=== PATIENT | female | born 1970 | race Two or more races ===

== ENCOUNTER 2020-05-01 17:21 | Emergency (ER) | payer MEDICAID, OTHER ==
[~2020-05-01] VITALS: Ht 157.5 cm; Wt 78.0 kg
[2020-05-01 18:10] VITALS: BP 131/77
== END 2020-05-01 22:15 | disposition home or self-care (01) ==
LOC: ER 17:21
DX: U07.1 COVID-19 (principal); J20.8 Acute bronchitis due to other specified organisms; E11.9 Type 2 diabetes mellitus without complications
CPT/HCPCS: 36415; 87426

== ENCOUNTER 2025-02-09 10:16 | Outpatient (CLI) | payer MEDICAID ==
[2025-02-09 10:50] LABS: Hematocrit 38.4 % (36.0-46.0); Hemoglobin 13.5 g/dL (12.2-16.2); Mean Corpuscular Hemoglobin 30.8 pg (28.0-32.0); Mean Corpuscular Volume 87.5 fL (80.0-100.0); Nucleated Red Blood Cells % 0.0 %
[2025-02-09 11:09] LABS: Alanine Aminotransferase 17 U/L (7-40); Albumin 4.4 g/dL (3.2-4.8); Alkaline Phosphatase 65 U/L (46-116); Anion Gap 9 (5-15); BUN/Creatinine Ratio 13.0 (10.0-20.0); Blood Urea Nitrogen 10 mg/dL (9-23); Calcium 9.2 mg/dL (8.7-10.4); Carbon Dioxide 27 mmol/L (20-31); Chloride 105 mmol/L (98-107); Potassium 4.0 mmol/L (3.5-5.1); Sodium 141 mmol/L (136-145); Total Protein 7.3 g/dL (5.7-8.2)
[2025-02-09 11:10] LABS: Bilirubin, Total 0.5 mg/dL (0.2-1.0)
[2025-02-09 11:11] LABS: Glucose 111 mg/dL (74-106)
[2025-02-09 11:20] LABS: Beta HCG, Quantitative 1.7 mIU/mL (1.5-4.2)
[2025-02-09 11:22] LABS: Thyroid Stimulating Hormone 1.17 uIU/mL (0.55-4.78)
[2025-02-09 13:23] LABS: Follicle Stimulating Hormone 64.19 IU/L (SEE BELOW); Free T4 (Free Thyroxine) 1.36 ng/dL (0.89-1.76)
== END 2025-02-09 17:00 | disposition home or self-care (01) ==
LOC: LAB 10:16
DX: N93.9 Abnormal uterine and vaginal bleeding, unspecified (principal)
CPT/HCPCS: 36415; 80053; 82626; 82670; 83001; 83002; 83036; 84146; 84402; 84403; 84439; 84443; 84702; 85025